=== PATIENT | male | born 1945 | race Caucasian/White ===

== ENCOUNTER 2016-05-27 21:02 | Emergency (ER) | payer MEDICARE, BC ==
--- NOTE | 2016-05-27 22:10 | ED ---
ENT HPI - General Chief complaint: ENT Stated complaint: nose bleed Time Seen by Provider: 05/27/16 21:42 Source: patient Mode of arrival: ambulatory Limitations: no limitations - History of Present Illness Initial comments: He presented with a nasal bleed, this is ongoing for last 3 hours he does does have a history of nasal bleeding the past of he is not on any blood thinners he denies any trauma to the nose twice denies any fall he did walk into something he is not on any Coumadin and heparin 40 chloride drugs. Eyes any headaches no chest pain or shortness of breath no abdominal pain no frequency urgency dysuria. - Related Data Home Medications Medication Instructions Recorded Confirmed Amoxicillin 875 mg PO Q12H 05/27/16 05/27/16 Atorvastatin [Lipitor] 40 mg PO HS 05/27/16 05/27/16 Calcium Carbonate [Calcium] 600 mg PO DAILY 05/27/16 05/27/16 Canagliflozin [Invokana] 100 mg PO DAILY 05/27/16 05/27/16 Dulaglutide [Trulicity] 0.75 mg SQ SA 05/27/16 05/27/16 Losartan/Hydrochlorothiazide 1 tab PO DAILY 05/27/16 05/27/16 [Losartan-Hctz 100-25 mg Tab] Metoprolol Tartrate [Lopressor] 100 mg PO DAILY 05/27/16 05/27/16 Pioglitazone HCl [Actos] 30 mg PO DAILY 05/27/16 05/27/16 Repaglinide [Prandin] 2 mg PO TID 05/27/16 05/27/16 amLODIPine [Norvasc] 5 mg PO DAILY 05/27/16 05/27/16 glipiZIDE [Glucotrol] 5 mg PO BID 05/27/16 05/27/16 Previous Rx's Medication Instructions Recorded Amoxic-Pot Clav 875-125Mg 1 tab PO Q12HR #14 tablet 05/27/16 [Augmentin 875-125] Allergies Allergy/AdvReac Type Severity Reaction Status Date / Time No Known Allergies Allergy Verified 05/27/16 21:30 Review of Systems ROS Statement: Those systems with pertinent positive or pertinent negative responses have been documented in the HPI. ROS Other: All systems not noted in ROS Statement are negative. Past Medical History Past Medical History: Diabetes Mellitus, Hyperlipidemia, Hypertension History of Any Multi-Drug Resistant Organisms: None Reported Past Surgical History: No Surgical Hx Reported Past Psychological History: No Psychological Hx Reported Smoking Status: Never smoker Past Alcohol Use History: None Reported Past Drug Use History: None Reported General Exam - General Exam Comments Initial Comments: General: The patient is awake and alert, in no distress, and does not appear acutely ill. GCS is 15 Skin: Skin is warm and dry and no rashes or lesions are noted. Eye: Pupils are equal, round and reactive to light, extra-ocular movements are intact; there is normal conjunctiva bilaterally. Ears, nose, mouth and throat: Noticed some blood oozing from both nares, after suction both sides of packed. Chest tender at the sinusitis Neck: The neck is supple, there is no tenderness or JVD. Cardiovascular: There is a regular rate and rhythm. No murmur, rub or gallop is appreciated. Respiratory: To auscultation bilateral, no wheezing no rhonchi no distress respiratory isabel noticed Gastrointestinal: Soft, non-distended, non-tender abdomen without masses or organomegaly noted. There is no rebound or guarding present. Bowel sounds are unremarkable. Back: There is no tenderness to palpation in the midline. There is no obvious deformity. Musculoskeletal: Normal ROM, no tenderness, There is no pedal edema. There is no calf tenderness or swelling. No cords were appreciated. Neurological: CN II-XII intact, Cranial nerves III through XII are intact. There are no obvious motor or sensory deficits. Coordination appears grossly intact. Speech is normal. Psychiatric: Cooperative, appropriate mood & affect, normal judgment. Limitations: no limitations Course Vital Signs 05/27/16 21:06 Temperature 98.2 F Pulse Rate 110 H Respiratory 20 Rate Blood Pressure 175/81 O2 Sat by Pulse 97 Oximetry Patient was watched for about 45 minutes after the packing last reassessment was done numb 0, he was not bleeding at all those there was no discomfort and now he is advised to keep the packing for 2 days follow-up with family doctor or come back to the ER he agrees with the Disposition Clinical Impression: Epistaxis, Sinusitis Disposition: HOME SELF-CARE Condition: Good Prescriptions: Amoxic-Pot Clav 875-125Mg [Augmentin 875-125] 1 tab PO Q12HR #14 tablet Referrals: Denice Garcia MD [Primary Care Provider] - 1-2 days
[2016-05-27 23:29] VITALS: BP 151/90; PULSE 75; RESP 16; TEMP 98.6
== END 2016-05-27 23:28 | disposition home or self-care (01) ==
LOC: EC 21:02
DX: R04.0 Epistaxis (principal); J32.9 Chronic sinusitis, unspecified; D11.9 Benign neoplasm of major salivary gland, unspecified; E78.5 Hyperlipidemia, unspecified; I10 Essential (primary) hypertension; Z79.84 Long term (current) use of oral hypoglycemic drugs; Z79.899 Other long term (current) drug therapy
CPT/HCPCS: 99283

== ENCOUNTER 2017-03-01 17:55 | Emergency (ER) | payer MEDICARE, BC ==
--- NOTE | 2017-03-01 18:28 | ED ---
General Adult HPI - General Chief complaint: Extremity Injury, Lower Stated complaint: RT KNEE PAIN Time Seen by Provider: 03/01/17 18:17 Source: patient, RN notes reviewed Mode of arrival: ambulatory Limitations: no limitations - History of Present Illness Initial comments: Patient 71-year-old male who presents emergency room today with chief complaint of increased pain to the right knee. He states this started 2 days ago. He states that when he woke up Thursday morning noticed some pains and swelling locally to the area. He states that it's better than it was yesterday. States he has better range of motion. Denies any injury or trauma. Denies any other complaints or symptoms. Patient denies any recent travel. Denies any difficulty breathing or shortness of breath. Patient denies any recent fever, chills, shortness of breath, chest pain, back pain, abdominal pain, nausea or vomiting, numbness or tingling, dysuria or hematuria, constipation or diarrhea, headaches or visual changes, or any other complaints. - Related Data Home Medications Medication Instructions Recorded Confirmed Atorvastatin [Lipitor] 40 mg PO HS 05/27/16 03/01/17 Canagliflozin [Invokana] 100 mg PO DAILY 05/27/16 03/01/17 Dulaglutide [Trulicity] 0.75 mg SQ JORDAN 05/27/16 03/01/17 Losartan/Hydrochlorothiazide 1 tab PO DAILY 05/27/16 03/01/17 [Losartan-Hctz 100-25 mg Tab] Metoprolol Tartrate [Lopressor] 100 mg PO DAILY 05/27/16 03/01/17 Pioglitazone HCl [Actos] 30 mg PO DAILY 05/27/16 03/01/17 Repaglinide [Prandin] 4 mg PO TID 05/27/16 03/01/17 amLODIPine [Norvasc] 5 mg PO DAILY 05/27/16 03/01/17 glipiZIDE [Glucotrol] 5 mg PO BID 05/27/16 03/01/17 Aspirin EC [Ecotrin Low Dose] 81 mg PO DAILY 03/01/17 03/01/17 Allergies Allergy/AdvReac Type Severity Reaction Status Date / Time No Known Allergies Allergy Verified 03/01/17 18:41 Review of Systems ROS Statement: Those systems with pertinent positive or pertinent negative responses have been documented in the HPI. ROS Other: All systems not noted in ROS Statement are negative. Past Medical History Past Medical History: Diabetes Mellitus, Hyperlipidemia, Hypertension History of Any Multi-Drug Resistant Organisms: None Reported Past Surgical History: No Surgical Hx Reported Additional Past Surgical History / Comment(s): achillis tendon Past Psychological History: No Psychological Hx Reported Smoking Status: Never smoker Past Alcohol Use History: None Reported Past Drug Use History: None Reported General Exam - General Exam Comments Initial Comments: General: The patient is awake and alert, in no distress, and does not appear acutely ill. Neck: The neck is supple, there is no tenderness or JVD. Cardiovascular: There is a regular rate and rhythm. No murmur, rub or gallop is appreciated. Respiratory: Lungs are clear to auscultation, respirations are non-labored, breath sounds are equal. No wheezes, stridor, rales, or rhonchi. Musculoskeletal: Patient does have mild swelling to the right knee compared bilaterally. Shows good range of motion. Sensations are intact pulses equal bilateral 2+ per strength is 5/5. No specific bony tenderness on exam. Negative Homans. No redness or sign of infection. Neurological: A&O x 3. CN II-XII intact, There are no obvious motor or sensory deficits. Coordination appears grossly intact. Speech is normal. Skin: Skin is warm and dry and no rashes or lesions are noted. Psychiatric: Normal mood and affect. Limitations: no limitations Course Vital Signs 03/01/17 18:12 Temperature 99.4 F Pulse Rate 80 Respiratory 18 Rate Blood Pressure 144/74 O2 Sat by Pulse 96 Oximetry Medical Decision Making - Medical Decision Making Case discussed in detail with attending physician Dr. Rose. X-ray negative for any acute abnormalities. Patient's also negative for any evidence of DVT. Results were discussed with the patient. Patient at this time is resting comfortable. He does with that there is improvement from 2 days ago. He states he's been using some heat at home. Advised to continue to use this and follow-up family doctor or orthopedics if symptoms persist for further evaluation advised return here to the emergency room for any symptoms increase or worsen or for any other concerns. Disposition Clinical Impression: Knee pain Disposition: HOME SELF-CARE Condition: Good Instructions: Knee Sprain (ED) Additional Instructions: Please use medication as discussed. Please follow-up with family doctor in the next 2 days of symptoms have not improved. Please return to emergency room if the symptoms increase or worsen or for any other concerns. Referrals: Denice Garcia MD [Primary Care Provider] - 1-2 days Time of Disposition: 19:42
--- NOTE | 2017-03-01 18:52 | XR ---
EXAMINATION TYPE: XR knee complete RT DATE OF EXAM: 03/01/2017 CLINICAL HISTORY: Right knee pain for 2 days TECHNIQUE: Three views of the right knee are obtained. COMPARISON: None. FINDINGS: There is no acute fracture/dislocation evident in right knee. There is moderate joint spac e loss medial tibiofemoral compartment. Meniscal calcification is felt present. There is mild to mode rate joint space loss with mild spurring patellofemoral compartment. There is some spurring from ante rior inferior patella at proximal patellar tendon attachment. The overlying soft tissue appears unrem arkable. IMPRESSION: There are mild to moderate degenerative changes in the right knee as detailed above.
--- NOTE | 2017-03-01 19:48 | US ---
EXAMINATION TYPE: US venous doppler duplex LE RT DATE OF EXAM: 03/01/2017 7:29 PM COMPARISON: NONE CLINICAL HISTORY: Right knee Pain. SIDE PERFORMED: Right TECHNIQUE: The lower extremity deep venous system is examined utilizing real time linear array sonog michel with graded compression, doppler sonography and color-flow sonography. VESSELS IMAGED: External Iliac Vein (EIV) Common Femoral Vein Deep Femoral Vein Greater Saphenous Vein * Femoral Vein Popliteal Vein Small Saphenous Vein * Proximal Calf Veins (* superficial vessels) Right Leg: Negative for DVT Grayscale, color doppler, spectral doppler imaging performed of the deep veins of the lower right lo wer extremity. There is normal flow, compressibility, vascular waveforms. IMPRESSION: No ultrasound evidence for acute DVT in the right lower extremity.
[2017-03-01 19:53] VITALS: BP 142/78; PULSE 68; RESP 16; TEMP 98.2
== END 2017-03-01 19:52 | disposition home or self-care (01) ==
LOC: EC 17:55
DX: M25.561 Pain in right knee (principal); M25.461 Effusion, right knee; E11.9 Type 2 diabetes mellitus without complications; E78.5 Hyperlipidemia, unspecified; I10 Essential (primary) hypertension; Z79.84 Long term (current) use of oral hypoglycemic drugs; Z79.899 Other long term (current) drug therapy; Z79.82 Long term (current) use of aspirin
CPT/HCPCS: 99284